=== PATIENT | female | born 1970 | race Caucasian/White ===

== ENCOUNTER 2017-05-24 12:23 | Inpatient (IN) ==
[2017-05-24] MEDS ORDERED: MORPHINE 2 MG/1 ML SYRINGE IV PRN (12:33)
[2017-05-24] MEDS: SODIUM CHLORIDE 0.9% 1,000 ML IV SCH ×2 (15:15→22:50)
[2017-05-24] MEDS: NEBIVOLOL 10 MG TABLET PO SCH (15:40)
[2017-05-24] MEDS: ONDANSETRON 4 MG/2 ML VIAL IV PRN ×2 (15:40→22:17)
[2017-05-24] MEDS: PANTOPRAZOLE 40 MG TABLET PO SCH (15:40)
[2017-05-24] MEDS: SIMETHICONE CHEW 80 MG TABLET PO PRN (18:29)
[2017-05-24] MEDS: MORPHINE 2 MG/1 ML SYRINGE IV PRN (19:50)
[2017-05-24] MEDS: ENOXAPARIN 40 MG/0.4 ML SYRINGE SUBCUT SCH (22:19)
[2017-05-24] MEDS: DOCUSATE SODIUM 100 MG CAPSULE PO SCH (22:19)
[2017-05-25] MEDS: MORPHINE 2 MG/1 ML SYRINGE IV PRN ×8 (00:49→22:10)
[2017-05-25] MEDS: ONDANSETRON 4 MG/2 ML VIAL IV PRN ×4 (04:24→15:34)
[2017-05-25] MEDS: SIMETHICONE CHEW 80 MG TABLET PO PRN (05:17)
[2017-05-25 06:23] LABS: Basophils # 0.1 10*3/uL (0.0-0.2); Basophils % 0.5 % (0.0-0.8); Eosinophils # 0.2 10*3/uL (0.0-0.87); Eosinophils % 1.7 % (0.00-10.9); Hematocrit 37.4 VOL% (35.7-47.0); Hemoglobin 13.2 GM/DL (12.0-16.0); Immature Granulocytes % 0.6 %; Immature Granulocytes Absolute 0.08 #; Lymphocytes # 2.5 10*3/uL (1.4-4.0); Lymphocytes % 17.5 % (21.3-54.2); Mean Corpuscular HGB Conc 35.3 GM/DL (32-36); Mean Corpuscular Hemoglobin 31 PG (27-34); Mean Corpuscular Volume 87.4 FL (87-102); Mean Platelet Volume 10.2 FL (9.6-12.0); Monocytes # 1.1 10*3/uL (0.11-0.8); Monocytes % 7.6 % (1.7-12.7); Neutrophils # 10.2 10*3/uL (1.4-7.4); Neutrophils % 72.1 % (38.7-73.9); Platelet Count 279 T/CUMM (130-400); Red Blood Count 4.28 MC/CUMM (3.8-5.5); White Blood Count 14.1 T/CUMM (4-12)
[2017-05-25 06:55] LABS: Albumin 3.6 G/DL (3.4-5.0); Bilirubin,Total 0.9 MG/DL (0.2-1.0); Calcium 8.4 MG/DL (8.5-10.1); Osmolality,Calculated 272.8 MOS/KG (273-304); Potassium 3.6 MMOL/L (3.5-5.1); Total Protein 6.4 G/DL (6.4-8.3)
[2017-05-25] MEDS: SODIUM CHLORIDE 0.9% 1,000 ML IV SCH ×3 (08:37→20:17)
[2017-05-25] MEDS: DOCUSATE SODIUM 100 MG CAPSULE PO SCH ×2 (08:37→20:12)
[2017-05-25] MEDS: PANTOPRAZOLE 40 MG TABLET PO SCH (08:37)
[2017-05-25] MEDS: NEBIVOLOL 10 MG TABLET PO SCH (08:37)
[2017-05-25] MEDS ORDERED: PANTOPRAZOLE 40 MG TABLET PO SCH (09:00)
[2017-05-25 09:29] LABS: Risk Ratio 4.5; VLDL CHOLESTEROL 37.2 MG/DL
[2017-05-25] MEDS: ACETAMINOPHEN 325 MG TABLET PO PRN ×2 (11:17→20:12)
[2017-05-25] MEDS: ENOXAPARIN 40 MG/0.4 ML SYRINGE SUBCUT SCH (20:12)
[2017-05-26] MEDS: ONDANSETRON 4 MG/2 ML VIAL IV PRN ×3 (00:13→13:37)
[2017-05-26] MEDS: MORPHINE 2 MG/1 ML SYRINGE IV PRN ×4 (01:21→10:28)
[2017-05-26] MEDS: SODIUM CHLORIDE 0.9% 1,000 ML IV SCH (05:40)
[2017-05-26 07:36] LABS: Basophils # 0.1 10*3/uL (0.0-0.2); Basophils % 0.3 % (0.0-0.8); Eosinophils # 0.1 10*3/uL (0.0-0.87); Eosinophils % 0.6 % (0.00-10.9); Hematocrit 35.4 VOL% (35.7-47.0); Hemoglobin 12.3 GM/DL (12.0-16.0); Immature Granulocytes % 0.6 %; Immature Granulocytes Absolute 0.13 #; Lymphocytes # 2.2 10*3/uL (1.4-4.0); Lymphocytes % 10.5 % (21.3-54.2); Mean Corpuscular HGB Conc 34.7 GM/DL (32-36); Mean Corpuscular Hemoglobin 31 PG (27-34); Mean Corpuscular Volume 89.2 FL (87-102); Mean Platelet Volume 9.8 FL (9.6-12.0); Monocytes # 1.6 10*3/uL (0.11-0.8); Monocytes % 7.6 % (1.7-12.7); Neutrophils # 16.5 10*3/uL (1.4-7.4); Neutrophils % 80.4 % (38.7-73.9); Platelet Count 238 T/CUMM (130-400); Red Blood Count 3.97 MC/CUMM (3.8-5.5); Red Cell Distribution Width 12.6 % (9.3-17.3); White Blood Count 20.5 T/CUMM (4-12)
[2017-05-26 07:54] LABS: Albumin 3.5 G/DL (3.4-5.0); Bilirubin,Total 0.9 MG/DL (0.2-1.0); Calcium 8.5 MG/DL (8.5-10.1); Eosinophils 2 % (0-10); Lymphocytes 11 % (20-55); Osmolality,Calculated 271.8 MOS/KG (273-304); Potassium 3.3 MMOL/L (3.5-5.1); Segmented Neutrophils 84 % (50-85); Total Cells Counted 100; Total Protein 6.6 G/DL (6.4-8.3)
[2017-05-26 07:55] LABS: Hypochromasia 1+; Platelet Estimate Adequate
[2017-05-26] MEDS: PANTOPRAZOLE 40 MG TABLET PO SCH (08:19)
[2017-05-26] MEDS: NEBIVOLOL 10 MG TABLET PO SCH (08:19)
[2017-05-26] MEDS: DOCUSATE SODIUM 100 MG CAPSULE PO SCH ×2 (08:19→20:39)
[2017-05-26] MEDS: SODIUM CHLOR 0.9% KCL 20 MEQ 20 MEQ/1,000 ML BAG IV SCH ×2 (09:11→17:28)
[2017-05-26] MEDS ORDERED: HYDROmorphone 2 MG/1 ML VIAL IV PRN ×2 (12:45)
[2017-05-26] MEDS ORDERED: MORPHINE 2 MG/1 ML SYRINGE IV PRN (13:05)
[2017-05-26] MEDS: MORPHINE 10 MG/1 ML VIAL IV PRN (13:35)
[2017-05-26] MEDS: ACETAMINOPHEN 325 MG TABLET PO PRN (17:27)
[2017-05-26] MEDS: ENOXAPARIN 40 MG/0.4 ML SYRINGE SUBCUT SCH (20:39)
[2017-05-27] MEDS: SODIUM CHLOR 0.9% KCL 20 MEQ 20 MEQ/1,000 ML BAG IV SCH ×3 (01:47→17:45)
[2017-05-27 06:27] LABS: Basophils # 0.1 10*3/uL (0.0-0.2); Basophils % 0.5 % (0.0-0.8); Eosinophils # 0.7 10*3/uL (0.0-0.87); Eosinophils % 4.5 % (0.00-10.9); Hematocrit 35.5 VOL% (35.7-47.0); Hemoglobin 12.6 GM/DL (12.0-16.0); Immature Granulocytes % 0.4 %; Immature Granulocytes Absolute 0.06 #; Lymphocytes # 2.5 10*3/uL (1.4-4.0); Lymphocytes % 15.8 % (21.3-54.2); Mean Corpuscular HGB Conc 35.5 GM/DL (32-36); Mean Corpuscular Hemoglobin 31 PG (27-34); Mean Corpuscular Volume 87.7 FL (87-102); Mean Platelet Volume 9.9 FL (9.6-12.0); Monocytes % 6.2 % (1.7-12.7); Neutrophils # 11.3 10*3/uL (1.4-7.4); Neutrophils % 72.6 % (38.7-73.9); Platelet Count 250 T/CUMM (130-400); Red Blood Count 4.05 MC/CUMM (3.8-5.5); Red Cell Distribution Width 12.7 % (9.3-17.3); White Blood Count 15.5 T/CUMM (4-12)
[2017-05-27 06:58] LABS: Albumin 3.2 G/DL (3.4-5.0); Bilirubin,Total 0.6 MG/DL (0.2-1.0); Calcium 8.3 MG/DL (8.5-10.1); Osmolality,Calculated 272.8 MOS/KG (273-304); Potassium 3.4 MMOL/L (3.5-5.1); Total Protein 6.3 G/DL (6.4-8.3)
[2017-05-27] MEDS: PANTOPRAZOLE 40 MG TABLET PO SCH (09:16)
[2017-05-27] MEDS: NEBIVOLOL 10 MG TABLET PO SCH (09:16)
[2017-05-27] MEDS: DOCUSATE SODIUM 100 MG CAPSULE PO SCH ×2 (09:16→20:55)
[2017-05-27] MEDS: MORPHINE 10 MG/1 ML VIAL IV PRN ×2 (09:17→20:54)
[2017-05-27] MEDS: ONDANSETRON 4 MG/2 ML VIAL IV PRN ×2 (09:18→20:54)
[2017-05-27] MEDS: ENOXAPARIN 40 MG/0.4 ML SYRINGE SUBCUT SCH (20:55)
[2017-05-28 06:14] LABS: Basophils # 0.1 10*3/uL (0.0-0.2); Basophils % 0.7 % (0.0-0.8); Eosinophils # 0.8 10*3/uL (0.0-0.87); Eosinophils % 7.9 % (0.00-10.9); Hemoglobin 12.2 GM/DL (12.0-16.0); Immature Granulocytes % 0.4 %; Immature Granulocytes Absolute 0.04 #; Lymphocytes # 2.7 10*3/uL (1.4-4.0); Lymphocytes % 27.6 % (21.3-54.2); Mean Corpuscular HGB Conc 33.9 GM/DL (32-36); Mean Corpuscular Hemoglobin 30 PG (27-34); Mean Corpuscular Volume 89.3 FL (87-102); Mean Platelet Volume 9.9 FL (9.6-12.0); Monocytes # 0.7 10*3/uL (0.11-0.8); Monocytes % 6.6 % (1.7-12.7); Neutrophils # 5.6 10*3/uL (1.4-7.4); Neutrophils % 56.8 % (38.7-73.9); Platelet Count 278 T/CUMM (130-400); Red Blood Count 4.03 MC/CUMM (3.8-5.5); Red Cell Distribution Width 12.7 % (9.3-17.3); White Blood Count 9.9 T/CUMM (4-12)
[2017-05-28 06:59] LABS: Albumin 2.9 G/DL (3.4-5.0); Bilirubin,Total 0.7 MG/DL (0.2-1.0); Calcium 8.8 MG/DL (8.5-10.1); Osmolality,Calculated 277.4 MOS/KG (273-304); Potassium 3.6 MMOL/L (3.5-5.1)
[2017-05-28] MEDS: NEBIVOLOL 10 MG TABLET PO SCH (08:46)
[2017-05-28] MEDS: DOCUSATE SODIUM 100 MG CAPSULE PO SCH ×2 (08:46→21:06)
[2017-05-28] MEDS: PANTOPRAZOLE 40 MG TABLET PO SCH (08:46)
[2017-05-28] MEDS: SODIUM CHLOR 0.9% KCL 20 MEQ 20 MEQ/1,000 ML BAG IV SCH ×3 (09:00→21:05)
[2017-05-28] MEDS ORDERED: BISACODYL 10 MG SUPP RECTAL PRN (10:48)
[2017-05-28] MEDS: ENOXAPARIN 40 MG/0.4 ML SYRINGE SUBCUT SCH (21:06)
[2017-05-29] MEDS: SODIUM CHLOR 0.9% KCL 20 MEQ 20 MEQ/1,000 ML BAG IV SCH ×3 (05:36→22:18)
[2017-05-29] MEDS: DOCUSATE SODIUM 100 MG CAPSULE PO SCH ×2 (11:05→22:18)
[2017-05-29] MEDS: NEBIVOLOL 10 MG TABLET PO SCH (11:05)
[2017-05-29] MEDS: PANTOPRAZOLE 40 MG TABLET PO SCH (11:05)
[2017-05-29] MEDS: ENOXAPARIN 40 MG/0.4 ML SYRINGE SUBCUT SCH (22:18)
[2017-05-30] MEDS: SODIUM CHLOR 0.9% KCL 20 MEQ 20 MEQ/1,000 ML BAG IV SCH (07:26)
[2017-05-30 07:48] VITALS: BP 160/74
[2017-05-30] MEDS: NEBIVOLOL 10 MG TABLET PO SCH (09:03)
[2017-05-30] MEDS: DOCUSATE SODIUM 100 MG CAPSULE PO SCH (09:03)
[2017-05-30] MEDS: PANTOPRAZOLE 40 MG TABLET PO SCH (09:03)
== END 2017-05-30 11:27 | disposition home or self-care (01) | DRG 439 ==
LOC: N.2E 13:10
PROVIDERS: ADMIT Internal Medicine; ATTEND Internal Medicine

== ENCOUNTER 2022-01-10 13:19 | Inpatient (IN) ==
[2022-01-10] MEDS ORDERED: ONDANSETRON 4 MG/2 ML VIAL IV STA (16:19)
[2022-01-10] MEDS ORDERED: SODIUM CHLORIDE 0.9% 1,000 ML IV STA (16:19)
[2022-01-10] MEDS ORDERED: MORPHINE 2 MG/1 ML SYRINGE IV STA (16:19)
[2022-01-10 16:52] LABS: Basophils # 0.1 10*3/uL (0.0-0.2); Basophils % 0.4 % (0.0-0.8); Eosinophils # 0.1 10*3/uL (0.0-0.87); Eosinophils % 0.8 % (0.00-10.9); Hematocrit 44.8 VOL% (35.7-47.0); Hemoglobin 15.5 GM/DL (12.0-16.0); Immature Granulocytes % 0.4 %; Immature Granulocytes Absolute 0.06 #; Lymphocytes # 3.1 10*3/uL (1.4-4.0); Lymphocytes % 19.4 % (21.3-54.2); Mean Corpuscular HGB Conc 34.6 GM/DL (32-36); Mean Corpuscular Volume 87.8 FL (87-102); Mean Platelet Volume 9.6 FL (9.6-12.0); Monocytes % 6.2 % (1.7-12.7); Neutrophils % 72.8 % (38.7-73.9); Platelet Count 304 T/CUMM (130-400); Red Cell Distribution Width 12.5 % (9.3-17.3); White Blood Count 15.7 T/CUMM (4-12)
[2022-01-10 17:10] LABS: Albumin 4.1 G/DL (3.4-5.0); Bilirubin,Total 0.7 MG/DL (0.20-1.00); Calcium 9.6 MG/DL (8.5-10.1); Osmolality,Calculated 280.7 MOS/KG (273-304); Potassium 3.5 MMOL/L (3.5-5.1); Total Protein 8.3 G/DL (6.4-8.2)
[2022-01-10] MEDS: MORPHINE 2 MG/1 ML SYRINGE IV PRN (19:58)
[2022-01-10] MEDS: ONDANSETRON 4 MG/2 ML VIAL IV PRN (19:58)
[2022-01-10] MEDS: LEVOFLOXACIN INJ 750 MG/150 ML PREMIX IV SCH (19:58)
[2022-01-10] MEDS: SODIUM CHLORIDE 0.9% 1,000 ML IV SCH (21:37)
[2022-01-10] MEDS: DOCUSATE SODIUM 100 MG CAPSULE PO SCH (21:37)
[2022-01-10] MEDS: PROMETHAZINE 25 MG/1 ML VIAL IM PRN (21:38)
[2022-01-10 22:01] LABS: Bilirubin,Urine Negative (Negative); Blood, Urine Negative (Negative); Glucose,Urine (UA) 150 mg/dL (Negative); Ketones,Urine 20 mg/dL (Negative); Mucus,Urine Few /LPF (Occasional); Nitrite,Urine Negative (Negative); Protein,Urine Negative (Negative); Squamous Epithelial Cell,Urine Occasional /HPF (0-10); Urine Appearance CLEAR (Clear); Urine Color Yellow (Yellow); Urine Specific Gravity > 1.060 (1.001-1.035); Urine Urobilinogen < 2.0 eU/dL (<2.0)
[2022-01-11] MEDS: MORPHINE 2 MG/1 ML SYRINGE IV PRN ×4 (04:15→23:23)
[2022-01-11] MEDS: ONDANSETRON 4 MG/2 ML VIAL IV PRN ×3 (04:15→16:51)
[2022-01-11] MEDS: PROMETHAZINE 25 MG/1 ML VIAL IM PRN ×2 (06:27→14:05)
[2022-01-11] MEDS: SODIUM CHLORIDE 0.9% 1,000 ML IV SCH ×3 (09:04→20:19)
[2022-01-11] MEDS: PANTOPRAZOLE 40 MG TABLET PO SCH (09:05)
[2022-01-11 09:07] LABS: Basophils # 0.1 10*3/uL (0.0-0.2); Basophils % 0.4 % (0.0-0.8); Eosinophils # 0.4 10*3/uL (0.0-0.87); Hematocrit 41.9 VOL% (35.7-47.0); Hemoglobin 14.1 GM/DL (12.0-16.0); Immature Granulocytes % 0.4 %; Immature Granulocytes Absolute 0.06 #; Lymphocytes % 20.6 % (21.3-54.2); Mean Corpuscular HGB Conc 33.7 GM/DL (32-36); Mean Corpuscular Volume 89.9 FL (87-102); Mean Platelet Volume 9.4 FL (9.6-12.0); Monocytes # 1.1 10*3/uL (0.11-0.8); Monocytes % 7.5 % (1.7-12.7); Neutrophils % 68.1 % (38.7-73.9); Platelet Count 274 T/CUMM (130-400); Red Blood Count 4.66 MC/CUMM (3.8-5.5); Red Cell Distribution Width 12.8 % (9.3-17.3); White Blood Count 14.5 T/CUMM (4-12)
[2022-01-11] MEDS: DOCUSATE SODIUM 100 MG CAPSULE PO SCH ×2 (09:30→20:19)
[2022-01-11] MEDS: PANTOPRAZOLE 40 MG VIAL IV SCH (09:30)
[2022-01-11 09:31] LABS: Albumin 3.4 G/DL (3.4-5.0); Bilirubin,Total 0.7 MG/DL (0.20-1.00); Calcium 9.3 MG/DL (8.5-10.1); Osmolality,Calculated 277.7 MOS/KG (273-304); Potassium 3.4 MMOL/L (3.5-5.1); Total Protein 7.4 G/DL (6.4-8.2)
[2022-01-11] MEDS: ACETAMINOPHEN 325 MG TABLET PO PRN ×2 (11:22→16:52)
[2022-01-11] MEDS: INSULIN LISPRO 100 UNIT/ML SUBCUT SCH ×2 (14:09→17:12)
[2022-01-11] MEDS ORDERED: MORPHINE 2 MG/1 ML SYRINGE IV PRN (16:56)
[2022-01-11] MEDS: LEVOFLOXACIN INJ 750 MG/150 ML PREMIX IV SCH (17:12)
[2022-01-12] MEDS: INSULIN LISPRO 100 UNIT/ML SUBCUT SCH ×4 (00:30→17:17)
[2022-01-12] MEDS: MORPHINE 2 MG/1 ML SYRINGE IV PRN ×3 (04:30→17:18)
[2022-01-12] MEDS: SODIUM CHLORIDE 0.9% 1,000 ML IV SCH ×3 (04:57→22:48)
[2022-01-12] MEDS: ONDANSETRON 4 MG/2 ML VIAL IV PRN ×2 (04:59→17:18)
[2022-01-12 05:00] LABS: Basophils # 0.1 10*3/uL (0.0-0.2); Basophils % 0.7 % (0.0-0.8); Eosinophils # 0.5 10*3/uL (0.0-0.87); Eosinophils % 5.4 % (0.00-10.9); Hematocrit 38.5 VOL% (35.7-47.0); Immature Granulocytes % 0.4 %; Immature Granulocytes Absolute 0.04 #; Lymphocytes # 2.8 10*3/uL (1.4-4.0); Lymphocytes % 28.1 % (21.3-54.2); Mean Corpuscular HGB Conc 33.8 GM/DL (32-36); Mean Corpuscular Volume 89.5 FL (87-102); Mean Platelet Volume 9.7 FL (9.6-12.0); Monocytes # 0.7 10*3/uL (0.11-0.8); Monocytes % 7.4 % (1.7-12.7); Platelet Count 218 T/CUMM (130-400); Red Cell Distribution Width 12.5 % (9.3-17.3)
[2022-01-12 05:46] LABS: Albumin 2.9 G/DL (3.4-5.0); Bilirubin,Total 0.6 MG/DL (0.20-1.00); Calcium 8.7 MG/DL (8.5-10.1); Osmolality,Calculated 278.4 MOS/KG (273-304); Potassium 3.4 MMOL/L (3.5-5.1); Total Protein 6.4 G/DL (6.4-8.2)
[2022-01-12] MEDS: DOCUSATE SODIUM 100 MG CAPSULE PO SCH ×2 (08:06→20:22)
[2022-01-12] MEDS: PANTOPRAZOLE 40 MG TABLET PO SCH (08:06)
[2022-01-12] MEDS: PANTOPRAZOLE 40 MG VIAL IV SCH (08:06)
[2022-01-12] MEDS: ACETAMINOPHEN 325 MG TABLET PO PRN ×2 (08:07→20:22)
[2022-01-12] MEDS: POTASSIUM CHLORIDE 10 MEQ TABLET PO SCH (09:08)
[2022-01-12] MEDS: PROMETHAZINE 25 MG/1 ML VIAL IM PRN ×2 (09:20→20:22)
[2022-01-12] MEDS: POLYETHYLENE GLYCOL POWDER 17 GM PACK PO SCH (14:17)
[2022-01-12] MEDS: LEVOFLOXACIN INJ 750 MG/150 ML PREMIX IV SCH (17:18)
[2022-01-13] MEDS: INSULIN LISPRO 100 UNIT/ML SUBCUT SCH ×4 (04:59→17:37)
[2022-01-13 06:26] LABS: Basophils # 0.1 10*3/uL (0.0-0.2); Basophils % 0.8 % (0.0-0.8); Eosinophils # 0.5 10*3/uL (0.0-0.87); Eosinophils % 8.4 % (0.00-10.9); Hematocrit 40.3 VOL% (35.7-47.0); Hemoglobin 13.4 GM/DL (12.0-16.0); Immature Granulocytes % 0.3 %; Immature Granulocytes Absolute 0.02 #; Lymphocytes # 2.3 10*3/uL (1.4-4.0); Lymphocytes % 37.7 % (21.3-54.2); Mean Corpuscular HGB Conc 33.3 GM/DL (32-36); Mean Corpuscular Volume 89.6 FL (87-102); Mean Platelet Volume 9.9 FL (9.6-12.0); Monocytes # 0.4 10*3/uL (0.11-0.8); Neutrophils % 45.8 % (38.7-73.9); Platelet Count 236 T/CUMM (130-400); Red Cell Distribution Width 12.3 % (9.3-17.3); White Blood Count 6.2 T/CUMM (4-12)
[2022-01-13 06:46] LABS: Bilirubin,Total 0.5 MG/DL (0.20-1.00); Osmolality,Calculated 279.4 MOS/KG (273-304); Potassium 3.5 MMOL/L (3.5-5.1); Total Protein 6.9 G/DL (6.4-8.2)
[2022-01-13] MEDS ORDERED: LOSARTAN 25 MG TABLET PO PRN (09:14)
[2022-01-13] MEDS: SODIUM CHLORIDE 0.9% 1,000 ML IV SCH ×2 (10:06→17:59)
[2022-01-13] MEDS: DOCUSATE SODIUM 100 MG CAPSULE PO SCH ×2 (10:08→20:39)
[2022-01-13] MEDS: POTASSIUM CHLORIDE 10 MEQ TABLET PO SCH (10:09)
[2022-01-13] MEDS: PANTOPRAZOLE 40 MG TABLET PO SCH (10:09)
[2022-01-13] MEDS: POLYETHYLENE GLYCOL POWDER 17 GM PACK PO SCH (10:09)
[2022-01-13] MEDS ORDERED: ROPIVACAINE 0.5% 30 ML VIAL ONE (10:40)
[2022-01-13] MEDS ORDERED: methylPREDNISolone ACETATE 80 MG/1 ML VIAL ONE (10:40)
[2022-01-13] MEDS ORDERED: fentaNYL 100 MCG/2 ML VIAL ONE (12:02)
[2022-01-13] MEDS ORDERED: propofoL 200 MG/20 ML VIAL IV ONE (12:02)
[2022-01-13] MEDS ORDERED: LIDOCAINE 2% 5 ML VIAL ONE (12:02)
[2022-01-13] MEDS: LEVOFLOXACIN INJ 750 MG/150 ML PREMIX IV SCH (17:00)
[2022-01-13] MEDS: ONDANSETRON 4 MG/2 ML VIAL IV PRN (17:37)
[2022-01-13] MEDS: MORPHINE 2 MG/1 ML SYRINGE IV PRN (20:40)
[2022-01-13] MEDS: PROMETHAZINE 25 MG/1 ML VIAL IM PRN (20:55)
[2022-01-13] MEDS ORDERED: ATORVASTATIN 20 MG TABLET PO SCH (21:00)
[2022-01-14] MEDS: INSULIN LISPRO 100 UNIT/ML SUBCUT SCH ×3 (01:23→13:24)
[2022-01-14] MEDS: SODIUM CHLORIDE 0.9% 1,000 ML IV SCH (04:08)
[2022-01-14] MEDS: MORPHINE 2 MG/1 ML SYRINGE IV PRN (04:10)
[2022-01-14 06:25] LABS: Basophils # 0.1 10*3/uL (0.0-0.2); Basophils % 0.8 % (0.0-0.8); Eosinophils # 0.4 10*3/uL (0.0-0.87); Eosinophils % 5.6 % (0.00-10.9); Hematocrit 40.3 VOL% (35.7-47.0); Hemoglobin 13.6 GM/DL (12.0-16.0); Immature Granulocytes % 0.3 %; Immature Granulocytes Absolute 0.02 #; Lymphocytes # 2.3 10*3/uL (1.4-4.0); Lymphocytes % 30.8 % (21.3-54.2); Mean Corpuscular HGB Conc 33.7 GM/DL (32-36); Mean Platelet Volume 9.7 FL (9.6-12.0); Monocytes # 0.4 10*3/uL (0.11-0.8); Monocytes % 5.3 % (1.7-12.7); Neutrophils % 57.2 % (38.7-73.9); Platelet Count 307 T/CUMM (130-400); Red Blood Count 4.48 MC/CUMM (3.8-5.5); Red Cell Distribution Width 12.1 % (9.3-17.3); White Blood Count 7.4 T/CUMM (4-12)
[2022-01-14 07:01] LABS: Albumin 3.3 G/DL (3.4-5.0); Bilirubin,Total 0.4 MG/DL (0.20-1.00); Calcium 9.3 MG/DL (8.5-10.1); Osmolality,Calculated 279.5 MOS/KG (273-304); Potassium 3.6 MMOL/L (3.5-5.1); Total Protein 7.3 G/DL (6.4-8.2)
[2022-01-14] MEDS ORDERED: GLUCAGON 1 MG VIAL IM PRN (08:11)
[2022-01-14] MEDS ORDERED: DEXTROSE 10% 250 ML BAG IV PRN (08:11)
[2022-01-14] MEDS: POTASSIUM CHLORIDE 10 MEQ TABLET PO SCH (08:47)
[2022-01-14] MEDS: DOCUSATE SODIUM 100 MG CAPSULE PO SCH (08:47)
[2022-01-14] MEDS: POLYETHYLENE GLYCOL POWDER 17 GM PACK PO SCH (08:48)
[2022-01-14] MEDS ORDERED: PANTOPRAZOLE 40 MG TABLET PO SCH (09:00)
[2022-01-14] MEDS ORDERED: NEBIVOLOL 10 MG TABLET PO SCH (09:00)
[2022-01-14] MEDS: PANTOPRAZOLE 40 MG VIAL IV SCH (09:40)
[2022-01-14 13:08] VITALS: BP 113/68
== END 2022-01-14 15:03 | disposition home or self-care (01) | DRG 439 ==
LOC: N.ED 13:19 → N.EDINP 13:19 → N.2W 01-11 08:39 → N.5E 01-13 17:40
PROVIDERS: ADMIT Internal Medicine; ATTEND Internal Medicine